=== PATIENT | male | born 1985 | race Caucasian/White ===

== ENCOUNTER 2021-04-07 16:37 | Emergency (ER) | payer OTHER ==
[2021-04-07] MEDS ORDERED: Prochlorperazine 10 MG/2 ML VIAL ONE (16:45)
[2021-04-07 17:05] LABS: #Basophils 0.1 thou/uL (0.0-0.2); #Lymphocytes 1.2 thou/uL (1.20-3.40); #Monocytes 1.2 thou/uL (0.11-0.59); #Neutrophils 12.4 thou/uL (1.40-6.50); %Basophils 0.8 % (0.0-1.0); %Eosinophils 0.1 % (0.0-10.0); %Lymphocytes 7.7 % (21.0-51.0); %Monocytes 8.1 % (0.0-10.0); %Neutrophils 83.4 % (42.0-75.0); Hemoglobin 13.8 g/dL (14.0-18.0); Mean Corpuscular Hemoglobin 30.8 pg (27.0-31.0); Mean Corpuscular Volume 93.3 fL (78.0-98.0); Platelet Count 353 thou/uL (130-400); RBC Distribution Width 11.9 % (11.5-14.5); Red Blood Cell (RBC) Count 4.47 mill/uL (4.70-6.10); White Blood Cell (WBC) Count 14.9 thou/uL (4.8-10.8)
[2021-04-07 17:18] LABS: Bicarbonate (HCO3v) 11.7 mmol/L (22.0-28.0); CO2 Tension (PvCO2) 24.6 mmHg (42.0-51.0); Calcium, Ionized 1.08 mmol/L (1.15-1.33); Chloride 110 mmol/L (98-107); Hemoglobin - Calc 14.6 g/dL (14.0-18.0); Potassium 4.8 mmol/L (3.5-5.1); Sodium 133 mmol/L (138-145); T. Carbon Dioxide 12.5 mmol/L (22.0-28.0); vO2 Saturation-calc 98.4 % (60.0-85.0)
[2021-04-07 17:21] LABS: ALT (SGPT) 31 U/L (8-55); AST (SGOT) 21 U/L (5-34); Albumin 4.5 g/dL (3.5-5.0); Alkaline Phosphatase 92 U/L (40-110); Anion Gap 23 mmol/L (10-20); BUN (Urea Nitrogen) 15 mg/dL (8.9-20.6); Bilirubin, Total 1.6 mg/dL (0.2-1.2); Calc. Creatinine Clearance 0 mL/min (70-130); Calcium 10.1 mg/dL (7.8-10.44); Carbon Dioxide 12 mmol/L (22-29); Chloride 103 mmol/L (98-107); Globulin 2.9 g/dL (2.4-3.5); Glucose 301 mg/dL (70-105); Lipase 9 U/L (8-78); Magnesium 1.9 mg/dL (1.6-2.6); Potassium 4.6 mmol/L (3.5-5.1); Protein, Total 7.4 g/dL (6.0-8.3); Sodium 133 mmol/L (136-145)
[2021-04-07] MEDS ORDERED: Insulin Regular 300 UNITS/3 ML VIAL ONE (17:31)
[2021-04-07] MEDS ORDERED: Mag-Al Plus 1200 MG/1200 MG/120 MG/30 ML UDCUP ONE ×2 (17:31→17:50)
[2021-04-07] MEDS ORDERED: Pantoprazole 40 MG VIAL ONE (17:31)
[2021-04-07 18:01] LABS: Bilirubin Negative (Negative); Blood, Urine Negative (Negative); Clarity Clear (Clear); Glucose, Urine (Dipstick) 500 mg/dL (Negative); Ketone, Urine > or equal to 80 mg/dL (Negative); Leukocyte Negative (Negative); Nitrite Negative (Negative); Protein, Urine (Dipstick) Negative (Neg-Trace); Specific Gravity, Urine 1.023 (1.002-1.036); Urobilinogen 0.2 mg/dL (Less than 2); pH, Urine 5.5 (5.0-9.0)
[2021-04-07 19:58] LABS: Lactic Acid 1.2 mmol/L (0.5-2.2)
[2021-04-07 20:41] LABS: Anion Gap 16 mmol/L (10-20); BUN (Urea Nitrogen) 13 mg/dL (8.9-20.6); Calc. Creatinine Clearance 0 mL/min (70-130); Calcium 9.6 mg/dL (7.8-10.44); Carbon Dioxide 14 mmol/L (22-29); Chloride 109 mmol/L (98-107); Glucose 165 mg/dL (70-105); Potassium 4.4 mmol/L (3.5-5.1); Sodium 135 mmol/L (136-145)
[2021-04-07 20:43] LABS: Acetaminophen Less than 6.0 mcg/mL (10.0-30.0); Alcohol Less than 10 mg/dL (Less than 10); Salicylate Less than 8.0 mg/dL (15.0-30.0)
[2021-04-07 20:53] LABS: Base Excess-Venous -11.7 mmol/L (-2.0 to 3.0); Bicarbonate (HCO3v) 13.5 mmol/L (22.0-28.0); CO2 Tension (PvCO2) 28.1 mmHg (42.0-51.0); Calcium, Ionized 1.21 mmol/L (1.15-1.33); Chloride 109 mmol/L (98-107); Hemoglobin - Calc 12.5 g/dL (14.0-18.0); Potassium 4.4 mmol/L (3.5-5.1); Sodium 136 mmol/L (138-145); T. Carbon Dioxide 14.3 mmol/L (22.0-28.0); vO2 Saturation-calc 92.5 % (60.0-85.0)
[2021-04-07 21:14] LABS: Amphetamine Not Detected (NotDetected); Barbiturates Screen Not Detected (NotDetected); Benzodiazepine Screen Not Detected (NotDetected); Cocaine Metabolite Screen Not Detected (NotDetected); Medtox Control Line Valid? VALID (VALID); Methadone Not Detected (NotDetected); Methamphetamine Not Detected (NotDetected); Opiate Screen Not Detected (NotDetected); Oxycodone Screen Not Detected (NotDetected); Phencyclidine (PCP) Not Detected (NotDetected); THC/Cannabinoid Screen Detected (NotDetected); Tricyclic Screen Not Detected (NotDetected)
[2021-04-07] MEDS ORDERED: D5 1/2 NS w/20 mEq KCL 1,000 ML ONE (21:34)
== END 2021-04-07 22:03 | disposition short-term general hospital (02) ==
LOC: MADERS 16:37
DX: E11.10 Type 2 diabetes mellitus with ketoacidosis without coma (principal); R10.13 Epigastric pain; Z79.4 Long term (current) use of insulin; Z79.899 Other long term (current) drug therapy
CPT/HCPCS: 36416; 80053; 80306; 80307; 81003; 82330; 82435; 82803; 83605; 83690; 83735; 84132; 84295; 85014; 85025; 96365; 96366; 96375; 96376; 36415-59; C9113; J0780; J1815; J3480